=== PATIENT | male | born 1975 | race Two or more races ===

== ENCOUNTER 2020-03-07 12:36 | Emergency (ER) | payer OTHER ==
[~2020-03-07] VITALS: Ht 172.7 cm; Wt 92.0 kg
[2020-03-07] MEDS ORDERED: LIDOCAINE 2%/EPI 1:100,000 20 ML VIAL. IJ ONE (12:45)
--- NOTE | 2020-03-07 12:56 | RAD ---
FINGER(S) RIGHT History: Thumb laceration on saw Comparison: None. Findings: 3 views of the right hand with attention to the first digit are submitted. There is an open fracture with a bony defect of the dorsal, distal aspect of the first distal phalanx. Impression: 1. There is open fracture with associated bony defect of the dorsal, distal aspect of the first distal phalanx. Electronically signed by: Mendel Cabello MD (03/07/2020 12:53 PM) [id number]
[2020-03-07] MEDS ORDERED: CEPHALEXIN 250 MG CAPSULE PO ONE (13:15)
[2020-03-07] MEDS ORDERED: NEOMY/BACITR/POLYMYXIN OINT PACKET. TP ONE (13:15)
[2020-03-07] MEDS ORDERED: HYDROcodone/APAP 5/325MG 1 TAB TABLET PO ONE (13:30)
--- NOTE | 2020-03-07 13:39 | PHYS DOC ---
Past History Past Medical History: No Pertinent History Past Surgical History: No Surgical History Smoking: Non-smoker Alcohol Use: None Drug Use: None General Adult EDM: Chief Complaint: LACERATION/AVULSION HPI: HPI: Patient is a 44-year-old male who presents the emergency room with a laceration on his right thumb. Patient states he was using a scale saw earlier this afternoon when his hand slipped. Patient states that he felt immediate numbness on his right thumb. He has had a laceration to the same finger a few years prior and received a tetanus vaccination at that time. He believes that his tetanus vaccination was given within the last 5 years. Reports holding pressure on wound with some improvement of bleeding. Denies use of blood thinners. Denies other injury. Review of Systems: Review of Systems: Constitutional: Denies fever or chills Eyes: Denies redness or eye pain HENT: Denies nasal congestion or sore throat Respiratory: Denies cough or shortness of breath Cardiovascular: Denies chest pain or palpitations GI: Denies abdominal pain, nausea, or vomiting : Denies dysuria or hematuria Musculoskeletal: Denies back pain. Reports pain to his right thumb Integument: Denies rash or skin lesions. Reports laceration to right thumb Neurologic: Denies headache or focal weakness; reports numbness to right thumb Complete systems were reviewed and found to be within normal limits, except as documented in this note. Current Medications: Current Meds: Current Medications Medications (Trade) Dose Ordered Sig/Taniya Start Time Stop Time Status Last Admin Dose Admin Acetaminophen/ Hydrocodone Bitart (Lortab 5/325) 1 tab 1X ONCE 03/07/20 13:30 03/07/20 13:31 UNV Cephalexin HCl (Keflex) 500 mg 1X ONCE 03/07/20 13:15 03/07/20 13:16 UNV Lidocaine/ Epinephrine (Xylocaine 2%-Epi 1:100,000) 20 ml 1X ONCE 03/07/20 12:45 03/07/20 12:54 DC 03/07/20 12:50 20 ML Neomycin/ Polymyxin/ Bacitracin (Triple Antibiotic Ointment) 1 pkt 1X ONCE 03/07/20 13:15 03/07/20 13:16 UNV Allergies: Allergies: Allergies Coded Allergies Type Severity Reaction Last Updated Verified No Known Drug Allergies 03/07/20 No Physical Exam: PE: Constitutional: Well developed, well nourished, no acute distress, non-toxic appearance HENT: Normocephalic, atraumatic Eyes: Conjunctiva normal, no discharge Neck: Normal range of motion, supple Lungs & Thorax: No respiratory distress, equal chest rise and fall Skin: Warm, dry, no erythema, no rash, laceration to dorsum of right thumb just distal to cuticle through nail measuring approximately 3cm Extremities: No edema, limited range of motion and mild numbness of the right th umb with a laceration across the nail bed as above Neurologic: Alert and oriented X 3, no focal deficits noted Psychologic: Affect normal, judgment normal Current Patient Data: Vital Signs: Vital Signs Date Time Temp Pulse Resp B/P (MAP) Pulse Ox O2 Delivery O2 Flow Rate FiO2 03/07/20 12:43 98.2 106 16 136/81 (99) 96 Room Air Radiology/Procedures: Radiology/Procedures: PROCEDURE: FINGER(S) RIGHT FINGER(S) RIGHT History: Thumb laceration on saw Comparison: None. Findings: 3 views of the right hand with attention to the first digit are submitted. There is an open fracture with a bony defect of the dorsal, distal aspect of the first distal phalanx. Impression: 1. There is open fracture with associated bony defect of the dorsal, distal aspect of the first distal phalanx. Electronically signed by: Mendel Cabello MD (03/07/2020 12:53 PM) [id number] Course & Med Decision Making: Course & Med Decision Making Pertinent Imaging studies reviewed. (See chart for details) Patient is a 44-year-old male who presents the emergency room with a laceration/partial amputation on his right thumb. X-ray showed a open fracture of the right first distal phalanx. A finger block was performed and the finger was copiously irrigated before the laceration was repaired. Nonadhesive d ressing and finger splint were applied. Pain was well-controlled with medication. Prophylactic antibiotics were given along with prescriptions for home. Tetanus vaccination is up-to-date and was not needed. Instructions to follow-up with orthopedist/hand surgeon were given. Patient stable for discharge with outpatient follow-up with PCP/Orthopedics/Hand. Discussed findings and plan with patient, who acknowledges understanding and agreement. Franko Disclaimer: Dragemmanuel Disclaimer: This electronic medical record was generated, in whole or in part, using a voice recognition dictation system. Splinting Splinting : Location: Right thumb Pre-Made Type: metal (finger splint) Pre-Proc Neuro Vasc Exam: abnormal (mild numbness to distal tip ) Post-Proc Neuro Vasc Exam: abnormal (numbness to distal tip prior to finger block and numbness continued ), unchanged from pre-exam Laceration/Wound Repair Laceration/Wound Repair : Wound Location: upper extremity (Right thumb- dorsal aspect) Wound's Depth, Shape: linear Wound Length (cm): 3 Wound Explored: no foreign body removed Irrigated w/ Saline (ccs): 420 Anesthesia: Lidocaine w/ Epi (2%) Volume Anesthetic (ccs): 4 Wound Debrided: minimal Wound Repaired With: sutures Suture Size/Type: 4:0, nylon Number of Sutures: 4 Sterile Dressing Applied?: Yes Splint Applied?: Yes Type of Splint Applied: Aluminum finger splint Progress Verbal consent obtained. Time out performed. Hand hygiene utilized. Wound cleaned with ChloraPrep. Anesthesia obtained via a 25-gauge hypodermic needle via 4 nerve digital block at base of right thumb utilizing 4 mL's of lidocaine 2% with epinephrine. Copious irrigation performed. Wound adequately approximated with 4-0 nylon sutures x 4 simple interrupted (2 sutures through nail base). P artial nail avulsion noted primarily to medial aspect that is not repairable. Patient tolerated procedure well and without difficulty. Empiric antibiotic ointment applied prior to sterile dressing and finger splint placement. 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 Michael Cummings (hand specialist) for further evaluation and treatment at . Address: [address] [place], [place] [id number] [id number], [place] [address] Scripts Hydrocodone Bit/Acetaminophen (NORCO 5-325 TABLET) 1 Each Tablet 0.5-1 TAB PO Q6HRS PRN for PAIN, #10 TAB Prov: CHARAN ARECHIGA DO 03/07/20 Cephalexin (KEFLEX) 500 Mg Capsule 1 CAP PO QID for Open fracture for 10 Days, #40 CAP 0 Refills Prov: CHARAN ARECHIGA DO 03/07/20 Justification of Admission: Justification of Admission: Justification of Admission Dx: N/A CHARAN ARECHIGA DO Mar 07, 2020 13:39
[2020-03-07 13:59] VITALS: BP 117/102
[2020-03-07] MEDS ORDERED: HYDR-3165 PO (14:51)
[2020-03-07] MEDS ORDERED: CEPH-264 PO (14:51)
== END 2020-03-07 15:00 | disposition home or self-care (01) ==
LOC: ER 12:36
DX: S68.021A Partial traumatic metacarpophalangeal amputation of right thumb, initial encounter (principal); W27.8XXA Contact with other nonpowered hand tool, initial encounter; Y93.89 Activity, other specified; Y92.89 Other specified places as the place of occurrence of the external cause; Y99.8 Other external cause status
CPT/HCPCS: 12002; 73140; 99283